=== PATIENT | female | born 2000 ===

== ENCOUNTER 2023-02-09 13:17 | Observation (INO) | payer MEDICAID ==
[~2023-02-09] VITALS: Ht 157.5 cm; Wt 120.2 kg
== END 2023-02-09 14:46 | disposition home or self-care (01) ==
LOC: UNDOADMOB 13:17 → EDBD 13:17 → LDRP 13:17 → UNDODISOB 14:46
PROVIDERS: ADMIT Obstetrics & Gynecology; ATTEND Obstetrics & Gynecology
DX: O60.02 Preterm labor without delivery, second trimester (principal); Z3A.27 27 weeks gestation of pregnancy
CPT/HCPCS: 59025; 81002; 94760; G0378